=== PATIENT | male | born 1990 | race Two or more races ===

== ENCOUNTER 2020-07-07 09:16 | Emergency (ER) | payer SELFPAY ==
[2020-07-07 10:16] LABS: INTERNATIONAL RATION (INR) 0.98; PROTHROMBIN TIME 13.2 SEC (11.4-15.4)
[2020-07-07 10:17] LABS: PARTIAL THROMBOPLASTIN TIME 30.4 SEC (23.5-35.8)
[2020-07-07 10:22] LABS: ABSOLUTE BASOPHILS # (AUTO) 0.1 10^3/uL (0.0-0.2); ABSOLUTE EOSINOPHILS # (AUTO) 0.1 10^3/uL (0.0-0.6); ABSOLUTE LYMPHOCYTES (AUTO) 3.2 10^3/uL (0.5-4.7); ABSOLUTE NEUT (AUTO) 4.1 10^3/uL (1.7-8.2); BASOPHILS % (AUTO) 0.8 % (0-2); EOSINOPHILS % (AUTO) 1.6 % (0-6); HEMATOCRIT 38.6 % (37.9-51.0); LYMPHOCYTES % (AUTO) 37.7 % (13-45); MEAN CORPUSCULAR HEMOGLOBIN 30.6 pg (27.0-33.4); MEAN CORPUSCULAR HGB CONC 33.7 g/dL (32.0-36.0); MEAN CORPUSCULAR VOLUME 91 fl (80-97); MONOCYTES % (AUTO) 11.7 % (3-13); PLATELET COUNT 474 10^3/uL (150-450); RED BLOOD COUNT 4.25 10^6/uL (4.35-5.55); RED CELL DISTRIBUTION WIDTH 13.8 % (11.5-14.0); SEGMENTED NEUTROPHILS % (AUTO) 48.2 % (42-78); TOTAL CELLS COUNTED % (AUTO) 100 %; WHITE BLOOD COUNT 8.4 10^3/uL (4.0-10.5)
--- NOTE | 2020-07-07 10:24 | RADIOLOGY REPORT (SQ) ---
EXAM DESCRIPTION: CT HEAD WITHOUT IMAGES COMPLETED DATE/TIME: 07/07/2020 10:08 am REASON FOR STUDY: right side facial droop COMPARISON: None. TECHNIQUE: Axial images acquired through the brain without intravenous contrast. Images reviewed wi th bone, brain and subdural windows. Additional sagittal and coronal reconstructions were generated. Images stored on PACS. All CT scanners at this facility use dose modulation, iterative reconstruction, and/or weight based d osing when appropriate to reduce radiation dose to as low as reasonably achievable (ALARA). [facility]: Dose Right [facility]: CareDose [facility]: Dose Right [facility]: Teradose 4D [facility]: MyColorScreen RADIATION DOSE: CT Rad equipment meets quality standard of care and radiation dose reduction techniq ues were employed. CTDIvol: 53.2 mGy. DLP: 964 mGy-cm. mGy. LIMITATIONS: None. FINDINGS: VENTRICLES: Normal size and contour. Incidental note is made of normal variant persistent cavum septum pellucidum. CEREBRUM: No masses. No hemorrhage. No midline shift. No evidence for acute infarction. Normal gra y/white matter differentiation. No areas of low density in the white matter. CEREBELLUM: No masses. No hemorrhage. No alteration of density. No evidence for acute infarction. EXTRAAXIAL SPACES: No fluid collections. No masses. ORBITS AND GLOBE: No intra- or extraconal masses. Normal contour of globe without masses. CALVARIUM: No fracture. PARANASAL SINUSES: No fluid or mucosal thickening. SOFT TISSUES: No mass or hematoma. OTHER: No other significant finding. IMPRESSION: NORMAL BRAIN CT WITHOUT CONTRAST. EVIDENCE OF ACUTE STROKE: NO. COMMENT: Quality ID # [id number]: Final reports with documentation of one or more dose reduction techniques (e.g., Automated exposure control, adjustment of the mA and/or kV according to patient size, use of iterative reconstruction technique) TECHNICAL DOCUMENTATION: JOB ID: [id number] 2010 [employer]- All Rights Reserved Reading location - IP/workstation name: [email or web address]
--- NOTE | 2020-07-07 10:25 | RADIOLOGY REPORT (SQ) ---
EXAM DESCRIPTION: CHEST SINGLE VIEW IMAGES COMPLETED DATE/TIME: 07/07/2020 10:15 am REASON FOR STUDY: right side facial droop COMPARISON: None. EXAM PARAMETERS: NUMBER OF VIEWS: Two views. TECHNIQUE: 2 frontal frontal radiographic views of the chest acquired. RADIATION DOSE: NA LIMITATIONS: None. FINDINGS: LUNGS AND PLEURA: No opacities, masses or pneumothorax. No pleural effusion. MEDIASTINUM AND HILAR STRUCTURES: No masses. Contour normal. HEART AND VASCULAR STRUCTURES: Heart normal in size. Normal vasculature. BONES: No acute findings. HARDWARE: None in the chest. OTHER: No other significant finding. IMPRESSION: NO ACUTE RADIOGRAPHIC FINDING IN THE CHEST. TECHNICAL DOCUMENTATION: JOB ID: [id number] 2010 [employer]- All Rights Reserved Reading location - IP/workstation name: [email or web address]
[2020-07-07 10:38] LABS: ALBUMIN 4.2 g/dL (3.5-5.0); ALKALINE PHOSPHATASE 56 U/L (38-126); ANION GAP 8 (5-19); ASPARTATE AMINO TRANSFERASE 39 U/L (17-59); BILIRUBIN,TOTAL 0.6 mg/dL (0.2-1.3); BLOOD UREA NITROGEN 17 mg/dL (7-20); CALCIUM 9.7 mg/dL (8.4-10.2); CARBON DIOXIDE 26 mmol/L (22-30); CHLORIDE 104 mmol/L (98-107); CREATINE KINASE 41 U/L (55-170); GLUCOSE 98 mg/dL (75-110); POTASSIUM 3.8 mmol/L (3.6-5.0)
[2020-07-07 10:54] LABS: TROPONIN I < 0.012 ng/mL
--- NOTE | 2020-07-07 11:04 | ER Document Report ---
ED General - General Chief Complaint: Facial Droop Stated Complaint: FACIAL DROOP Time Seen by Provider: 07/07/20 09:42 - HPI Notes: Patient is a 29-year-old male who presents to the emergency department for evaluation. He is primarily [place]ian-speaking, [employer] services were used. This patient presents to the emergency department for evaluation of difficulty moving the right side of his face, starting 2 days ago. He also had some chest pain yesterday. He has a mild headache in the frontotemporal region, that he rates a 5 out of 10. It is not the worst headache of his life. He denies hitting his head. He said no visual changes. No difficulty seeing or swallowing. He states he is having difficulty talking because he cannot move the right side of his face. He is moving his arms and legs without difficulty. No numbness or tingling. The patient also states he had some sharp chest pain yesterday. It lasted for about 5 to 10 minutes. He was at rest when it started and when it ended. It had no associated symptoms. It was in the central chest, nonradiating, with no associated symptoms. - Related Data Allergies/Adverse Reactions: Penicillins Allergy (Verified 07/07/20 10:13) Home Medications: prednisone 5 days ago for allergies. Past Medical History - General Information source: Patient - Social History Smoking Status: Never Smoker Chew tobacco use (# tins/day): No Frequency of alcohol use: Social Drug Abuse: None Family History: None Patient has homicidal ideation: No Review of Systems - Review of Systems EENT: See HPI Cardiovascular: See HPI Neurological/Psychological: See HPI -: Yes All other systems reviewed and negative Physical Exam - Vital signs Vitals: Pulse Ox 95 07/07/20 09:21 - Notes Notes: Vital signs reviewed, please refer to chart. Head is normocephalic, atraumatic. Pupils equal round, reactive to light. Neck is supple without meningismus. Heart is regular rate and rhythm. Lungs are clear to auscultation bilaterally. Abdomen is soft, nontender, normoactive bowel sounds throughout. Extremities without cyanosis, clubbing. Posterior calves are nontender. Peripheral pulses are equal. Skin is warm and dry. Patient is awake, alert, oriented x3. Patient with obvious facial nerve palsy on the right, otherwise cranial nerves II - XII are grossly intact without focal neurological deficits. Strength is plus 5 out of 5 bilateral upper and lower extremities. Sensation is intact. Reflexes symmetrical. Intact alrnel-ejtl-waeama, rapid alternating movements, [id number]. Course - Re-evaluation Re-evalutation: 07/07/20 11:05 Patient presents to the emergency department for evaluation of right-sided facial droop and some chest pain. 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 Will treat with antivirals, prednisone, send with erythromycin ointment for dry eye. Awaiting chest pain work-up, but his EKG is unremarkable. He has no significant risk factors. He has no family history of blood clots, no personal risk factors for blood clots. His heart rate is in the 60s. Patient is currently stable, we will continue to monitor. 07/07/20 11:24 All labs unremarkable. Neuro exam stable. Will send with antivirals, pred nisone taper, erythromycin eye ointment, and close follow-up. He is to return to the ED with worsening. - Vital Signs Vital signs: Temp Pulse Resp BP Pulse Ox 98.3 F 62 19 110/67 97 07/07/20 09:23 07/07/20 09:27 07/07/20 09:27 07/07/20 09:27 07/07/20 09:27 - Laboratory Result Diagrams: 07/07/20 09:51 07/07/20 09:51 Laboratory results interpreted by me: 07/07/20 07/07/20 09:51 09:51 RBC 4.25 L Hgb 13.0 L Plt Count 474 H ALT 57 H Creatine Kinase 41 L - Diagnostic Test Radiology reviewed: Reports reviewed Radiology results interpreted by me: 07/07/20 11:06 Chest X-Ray 07/07/20 09:21 IMPRESSION: NO ACUTE RADIOGRAPHIC FINDING IN THE CHEST. Head CT 07/07/20 09:21 IMPRESSION: NORMAL BRAIN CT WITHOUT CONTRAST. EVIDENCE OF ACUTE STROKE: NO. - EKG Interpretation by Me Additional EKG results interpreted by me: 07/07/20 11:06 Sinus mechanism with a rate of 60 bpm. First-degree AV block. Nonspecific ST changes, but no acute changes concerning for ischemia infarction. Old studies available for comparison. Discharge - Discharge Clinical Impression: Hardy palsy Chest pain Qualifiers: Chest pain type: unspecified Qualified Code(s): R07.9 - Chest pain, unspecified Condition: Stable Disposition: HOME, SELF-CARE Instructions: Hardy's Palsy ([facility]), Steroid Medication, Chest Pain of Unclear Cause ([facility]) Additional Instructions: Take medications as prescribed until gone. No clear cause was found for your chest pain, but no abnormalities were noted on your lab work. Your chest x-ray and CT scan of your head were unremarkable. Use the ophthalmic ointment to keep your eye moistened, as you will have difficulty closing her eyes. Follow-up with primary care next week. If you develop worsening or new concerning symptoms of any sort, please return immediately to the emergency department for reevaluation.
[2020-07-07 12:06] VITALS: BP 110/68
--- NOTE | 2020-07-07 12:32 | EKG REPORT ---
SEVERITY:- NORMAL ECG - SINUS RHYTHM : Confirmed by: Rey Leahy MD 07-Jul-2020 12:32:12
== END 2020-07-07 12:11 | disposition home or self-care (01) ==
LOC: ER 09:16
DX: G51.0 Bell's palsy (principal); R07.9 Chest pain, unspecified; R51 Headache; Z88.0 Allergy status to penicillin
CPT/HCPCS: 36415; 70450; 71045; 80053; 82550; 82553; 84484; 85025; 85610; 85730; 93005; 93010; 99284